=== PATIENT | female | born 1945 | race Two or more races ===

== ENCOUNTER 2017-03-16 16:02 | Outpatient (CLI) | payer OTHER ==
[~2017-03-16 16:02] MED LIST: ALBUTEROL1.25 MG/3 IH; CELEBREX100 MG PO; HYZAAR 100-251 EACH PO; LOSARTAN-HCTZ1 EAC1 PO; PROAIR HFA8.5 GM IH; QVAR7.3 G1 IH; SINGULAIR10 MG PO; SYMBICORT 16010.2 GM IH; SYNTHROID50 MCG PO
== END 2017-03-16 17:00 | disposition home or self-care (01) ==
LOC: RAD 16:02
DX: M25.562 Pain in left knee (principal); M17.12 Unilateral primary osteoarthritis, left knee

== ENCOUNTER 2017-03-22 10:02 | Day surgery (SDC) | payer OTHER | END 2017-03-22 19:50 | disposition home or self-care (01) | LOC: CIR.AMB 10:02 | DX: M23.242 Derangement of anterior horn of lateral meniscus due to old tear or injury, left knee (principal); M23.222 Derangement of posterior horn of medial meniscus due to old tear or injury, left knee; M22.12 Recurrent subluxation of patella, left knee; M65.862 Other synovitis and tenosynovitis, left lower leg; M22.42 Chondromalacia patellae, left knee; D17.22 Benign lipomatous neoplasm of skin and subcutaneous tissue of left arm; D17.21 Benign lipomatous neoplasm of skin and subcutaneous tissue of right arm; M12.262 Villonodular synovitis (pigmented), left knee ==

== ENCOUNTER 2017-06-01 17:10 | Emergency (ER) | payer OTHER ==
[~2017-06-01] VITALS: Ht 152.4 cm; Wt 76.7 kg
== END 2017-06-01 19:04 | disposition home or self-care (01) ==
LOC: ER 17:10
DX: S40.011A Contusion of right shoulder, initial encounter (principal); W18.09XA Striking against other object with subsequent fall, initial encounter; Y93.89 Activity, other specified; Y92.89 Other specified places as the place of occurrence of the external cause; Y99.8 Other external cause status

== ENCOUNTER 2017-12-30 13:17 | Outpatient (CLI) | payer OTHER | END 2017-12-30 15:28 | disposition home or self-care (01) | LOC: NUCLEAR 13:17 | DX: M81.0 Age-related osteoporosis without current pathological fracture (principal) ==

== ENCOUNTER 2018-07-28 08:20 | Outpatient (CLI) | payer OTHER ==
[2018-07-28] MEDS ORDERED: VALSARTAN-HCTZ1 EAC3 PO (11:53)
[2018-07-28] MEDS ORDERED: ANASTROZOLE1 MG PO (11:55)
== END 2018-07-28 08:51 | disposition home or self-care (01) ==
LOC: LAB 08:20
DX: D64.89 Other specified anemias (principal); E88.89 Other specified metabolic disorders; D68.8 Other specified coagulation defects; N39.0 Urinary tract infection, site not specified; Z22.322 Carrier or suspected carrier of Methicillin resistant Staphylococcus aureus; I49.8 Other specified cardiac arrhythmias; Z76.89 Persons encountering health services in other specified circumstances

== ENCOUNTER 2018-08-02 14:56 | Outpatient (CLI) | payer OTHER ==
[~2018-08-02 14:56] MED LIST changes: +ANASTROZOLE1 MG PO; +VALSARTAN-HCTZ1 EAC3 PO
== END 2018-08-02 15:03 | disposition home or self-care (01) ==
LOC: RAD 501 14:56
DX: M79.652 Pain in left thigh (principal); M79.605 Pain in left leg

== ENCOUNTER 2018-08-02 16:19 | Inpatient (IN) | payer OTHER ==
[~2018-08-02] VITALS: Ht 152.4 cm; Wt 77.6 kg
[2018-08-11] MEDS ORDERED: AMILODIPINE PO (13:51)
[2018-08-11] MEDS ORDERED: ARIMIDEX PO (13:51)
[2018-08-11] MEDS ORDERED: ALLEGRA ALLERG180 MG PO (13:52)
[2018-08-11] MEDS ORDERED: ALENDRONATE PO (13:53)
[2018-08-15] MEDS ORDERED: AMLODIPINE BESYL5 MG PO (09:25)
[2018-08-15] MEDS ORDERED: ANASTROZOLE1 MG PO (09:25)
[2018-08-15] MEDS ORDERED: ALENDRONATE SOD70 MG PO (09:26)
[2018-08-15] MEDS ORDERED: XARELTO10 MG PO (09:27)
[2018-08-15] MEDS ORDERED: SYMBICORT 16010.2 GM IH (09:28)
[2018-08-15] MEDS ORDERED: TRAMADOL HCL50 MG PO (09:28)
== END 2018-08-18 18:30 | DRG 470 ==
LOC: SURH 08-15 06:09 → O/R 08-15 06:09 → RECOVERY 08-15 07:00 → SURH 08-15 14:13
PROVIDERS: ADMIT Orthopaedic Surgery
PROC: 0SRD0J9 Replacement of Left Knee Joint with Synthetic Substitute, Cemented, Open Approach (ICD-10-PCS; principal; 2018-08-15 07:00)
DX: M17.12 Unilateral primary osteoarthritis, left knee (principal); D62 Acute posthemorrhagic anemia

== ENCOUNTER 2018-08-31 08:10 | Outpatient (CLI) | payer OTHER ==
[~2018-08-31 08:10] MED LIST changes: +ALENDRONATE PO; +ALENDRONATE SOD70 MG PO; +ALLEGRA ALLERG180 MG PO; +AMILODIPINE PO; +AMLODIPINE BESYL5 MG PO; +ARIMIDEX PO; +TRAMADOL HCL50 MG PO; +XARELTO10 MG PO
== END 2018-08-31 08:20 | disposition home or self-care (01) ==
LOC: LAB 08:10
DX: M06.4 Inflammatory polyarthropathy (principal); D64.89 Other specified anemias

== ENCOUNTER 2018-09-06 07:56 | Outpatient (CLI) | payer OTHER | END 2018-09-06 15:14 | disposition home or self-care (01) | LOC: LAB 07:56 | DX: D64.89 Other specified anemias (principal); M06.4 Inflammatory polyarthropathy ==

== ENCOUNTER 2019-01-24 08:21 | Outpatient (CLI) | payer OTHER | END 2019-01-24 08:30 | disposition home or self-care (01) | LOC: LAB 08:21 | DX: M85.88 Other specified disorders of bone density and structure, other site (principal); E55.9 Vitamin D deficiency, unspecified; E88.89 Other specified metabolic disorders; E21.2 Other hyperparathyroidism; E56.1 Deficiency of vitamin K ==

== ENCOUNTER 2019-01-24 10:25 | Outpatient (CLI) | payer OTHER | END 2019-01-24 11:00 | disposition home or self-care (01) | LOC: NUCLEAR 10:25 | DX: M81.0 Age-related osteoporosis without current pathological fracture (principal) ==

== ENCOUNTER → 2019-01-31 | Outpatient (CLI) | payer OTHER | END | disposition home or self-care (01) | LOC: RAD 08:09 | DX: Z96.653 Presence of artificial knee joint, bilateral (principal) ==

== ENCOUNTER 2020-03-24 10:41 | Outpatient (CLI) | payer OTHER | END 2020-03-24 10:46 | disposition home or self-care (01) | LOC: RAD 10:41 | PROVIDERS: ATTEND Orthopaedic Surgery | DX: M25.562 Pain in left knee (principal); M25.561 Pain in right knee; Z96.653 Presence of artificial knee joint, bilateral ==

== ENCOUNTER 2020-11-21 11:51 | Outpatient (CLI) | payer OTHER | END 2020-11-21 11:53 | disposition home or self-care (01) | LOC: RAD 11:51 | PROVIDERS: ATTEND Orthopaedic Surgery | DX: M25.572 Pain in left ankle and joints of left foot (principal) ==

== ENCOUNTER 2020-11-21 12:24 | Outpatient (CLI) | payer OTHER | END 2020-11-21 12:29 | disposition home or self-care (01) | LOC: NUCLEAR 12:24 | PROVIDERS: ATTEND Orthopaedic Surgery | DX: M81.0 Age-related osteoporosis without current pathological fracture (principal) ==

== ENCOUNTER 2020-12-24 07:15 | Outpatient (CLI) | payer OTHER | END 2020-12-24 07:24 | disposition home or self-care (01) | LOC: NUCLEAR 07:15 | PROVIDERS: ATTEND Orthopaedic Surgery | DX: M79.605 Pain in left leg (principal); Z96.652 Presence of left artificial knee joint | CPT/HCPCS: 78315; 78802; A9503; A9556 ==

== ENCOUNTER 2021-02-23 06:49 | Outpatient (CLI) | payer OTHER | END 2021-02-23 06:57 | disposition home or self-care (01) | LOC: LAB 06:49 | PROVIDERS: ATTEND Orthopaedic Surgery | DX: E56.1 Deficiency of vitamin K (principal); E55.9 Vitamin D deficiency, unspecified; M85.9 Disorder of bone density and structure, unspecified ==

== ENCOUNTER 2022-03-17 09:05 | Outpatient (CLI) | payer OTHER | END 2022-03-17 09:15 | disposition home or self-care (01) | LOC: RAD 09:05 | PROVIDERS: ATTEND Orthopaedic Surgery | DX: M25.572 Pain in left ankle and joints of left foot (principal) ==

== ENCOUNTER 2022-06-01 12:56 | Outpatient (CLI) | payer OTHER | END 2022-06-01 13:11 | disposition home or self-care (01) | LOC: NUCLEAR 12:56 | PROVIDERS: ATTEND Orthopaedic Surgery | DX: M81.0 Age-related osteoporosis without current pathological fracture (principal) ==

== ENCOUNTER 2022-07-05 09:20 | Outpatient (CLI) | payer OTHER | END 2022-07-05 14:52 | disposition home or self-care (01) | LOC: LAB 09:20 | PROVIDERS: ATTEND Orthopaedic Surgery | DX: M85.9 Disorder of bone density and structure, unspecified (principal); E56.1 Deficiency of vitamin K; M81.8 Other osteoporosis without current pathological fracture; E83.42 Hypomagnesemia; E88.89 Other specified metabolic disorders ==

== ENCOUNTER 2022-12-21 10:05 | Outpatient (CLI) | payer OTHER | END 2022-12-21 10:09 | disposition home or self-care (01) | LOC: RAD 10:05 | PROVIDERS: ATTEND Orthopaedic Surgery | DX: M25.561 Pain in right knee (principal); Z91.048 Other nonmedicinal substance allergy status ==

== ENCOUNTER 2022-12-28 08:54 | Outpatient (CLI) | payer OTHER | END 2022-12-28 08:56 | disposition home or self-care (01) | LOC: RAD 08:54 | PROVIDERS: ATTEND Orthopaedic Surgery | DX: M25.561 Pain in right knee (principal) ==

== ENCOUNTER 2023-02-07 10:20 | Outpatient (CLI) | payer OTHER | END 2023-02-07 10:25 | disposition home or self-care (01) | LOC: RAD 10:20 | PROVIDERS: ATTEND Orthopaedic Surgery | DX: S72.454 Nondisplaced supracondylar fracture without intracondylar extension of lower end of right femur (principal); S82.144D Nondisplaced bicondylar fracture of right tibia, subsequent encounter for closed fracture with routine healing; Z91.048 Other nonmedicinal substance allergy status ==

== ENCOUNTER 2023-06-15 13:22 | Outpatient (CLI) | payer OTHER | END 2023-06-15 13:25 | disposition home or self-care (01) | LOC: NUCLEAR 13:22 | PROVIDERS: ATTEND Orthopaedic Surgery | DX: M81.0 Age-related osteoporosis without current pathological fracture (principal) ==

== ENCOUNTER 2024-07-25 10:06 | Outpatient (CLI) | payer OTHER | END 2024-07-25 10:07 | disposition home or self-care (01) | LOC: NUCLEAR 10:06 | PROVIDERS: ATTEND Orthopaedic Surgery | DX: M81.0 Age-related osteoporosis without current pathological fracture (principal) ==

== ENCOUNTER → 2024-08-07 08:37 | Outpatient (CLI) | payer OTHER | END | disposition home or self-care (01) | LOC: LAB 08:37 | PROVIDERS: ATTEND Orthopaedic Surgery | DX: E55.9 Vitamin D deficiency, unspecified (principal); M85.9 Disorder of bone density and structure, unspecified; E56.1 Deficiency of vitamin K ==

== ENCOUNTER 2024-08-07 08:55 | Outpatient (CLI) | payer OTHER | END 2024-08-07 09:06 | disposition home or self-care (01) | LOC: RAD 08:55 | PROVIDERS: ATTEND Orthopaedic Surgery | DX: Z96.653 Presence of artificial knee joint, bilateral (principal) ==

== ENCOUNTER 2024-09-04 08:26 | Outpatient (CLI) | payer OTHER ==
[2024-09-04 09:16] LABS: BASO % 0.4 % (0.1-1.2); EOS # 0.32 (0.04-0.54); EOS % 6.4 % (0.7-7.0); LYMPH # 0.81 (1.18-3.74); LYMPH % 16.3 % (19.3-53.1); MEAN PLATELET VOLUME 9.00 fl (9.4-12.4); MONO # 0.44 (0.24-0.82); MONO % 8.8 % (4.7-12.5); NEUT # 3.37 (1.56-6.13); NEUT % 67.7 % (34.0-71.1); RED CELL DISTRIBUTION WIDTH 14.1 % (11.6-14.4)
[2024-09-04 09:36] LABS: INR 1.05
[2024-09-04 09:46] LABS: URINE APPEARANCE Clear; URINE BILIRRUBIN Negative (NEGATIVE); URINE BLOOD Negative; URINE COLOR Yellow; URINE GLUCOSE Negative (NEGATIVE); URINE KETONE Negative (NEGATIVE); URINE LEUKOCYTE Large; URINE NITRATE Positive; URINE PROTEIN Trace (NEGATIVE); URINE UROBILINOGEN 1.0 E.U./dl
[2024-09-04 09:47] LABS: URINE RBC 4.6 uL (0.0-20.8); URINE WBC 1313.0 uL (0.0-23.2)
[2024-09-04 10:06] LABS: ALT/SGPT 27.0 U/L (12-78); AST/SGOT 20.0 U/L (15-37); BILIRUBIN TOTAL 0.74 mg/dL (0.3-1.2); BUN CREA RATIO 20.0 (7.0-25.0); CREATININE SERUM 0.7 mg/dL (0.55-1.02); GFR 81.14; GLOBULINA 2.9 G/DL (2.4-3.5); GLUCOSE FASTING 97.0 mg/dL (65-100); OSMOLALITY SERUM 274.0 MOSM/KG (275-295)
[2024-09-04 10:08] LABS: COL EPI 108 SECONDS (82-175)
[2024-09-04 11:56] LABS: URINE BACTERIA > 9821.5 uL (0.0-1933); URINE CAST 0.29 uL (0.0-1.40); URINE EPITHELIAL CELLS 0.9 uL (0.0-38.8)
== END 2024-09-04 09:12 | disposition home or self-care (01) ==
LOC: LAB 08:26
PROVIDERS: ATTEND Orthopaedic Surgery
DX: D64.9 Anemia, unspecified (principal); E88.9 Metabolic disorder, unspecified; D68.8 Other specified coagulation defects; N39.0 Urinary tract infection, site not specified; Z22.322 Carrier or suspected carrier of Methicillin resistant Staphylococcus aureus; E11.9 Type 2 diabetes mellitus without complications

== ENCOUNTER 2024-09-04 08:58 | Outpatient (CLI) | payer OTHER | END 2024-09-04 09:02 | disposition home or self-care (01) | LOC: RAD 08:58 | PROVIDERS: ATTEND Orthopaedic Surgery | DX: Z76.89 Persons encountering health services in other specified circumstances (principal) ==

== ENCOUNTER 2024-09-18 14:45 | Emergency (ER) | payer OTHER ==
[~2024-09-18] VITALS: Ht 162.6 cm; Wt 90.7 kg
[2024-09-18] MEDS ORDERED: RINGERS SOLUTION,LACTATED 500 ML IV STA (19:37)
[2024-09-18] MEDS ORDERED: FAMOtidine 10 MG/ML (4ML VIAL) IV PUSH STA (19:38)
[2024-09-18] MEDS ORDERED: HYOSCYAMINE SULFATE 0.125 MG TAB.SUBL SL ONE (19:45)
[2024-09-18 20:20] LABS: BASO % 0.5 % (0.1-1.2); EOS # 0.15 (0.04-0.54); EOS % 3.4 % (0.7-7.0); LYMPH # 1.15 (1.18-3.74); LYMPH % 26.4 % (19.3-53.1); MEAN PLATELET VOLUME 9.10 fl (9.4-12.4); MONO # 0.45 (0.24-0.82); MONO % 10.3 % (4.7-12.5); NEUT # 2.57 (1.56-6.13); NEUT % 59.2 % (34.0-71.1); RED CELL DISTRIBUTION WIDTH 13.9 % (11.6-14.4)
[2024-09-18 20:43] LABS: BUN CREA RATIO 15.0 (7.0-25.0); CREATININE SERUM 0.73 mg/dL (0.55-1.02); GFR 77.3; GLUCOSE FASTING 99.0 mg/dL (65-100); OSMOLALITY SERUM 262.0 MOSM/KG (275-295)
== END 2024-09-18 22:55 | disposition home or self-care (01) ==
LOC: ER 14:45
DX: R11.10 Vomiting, unspecified (principal); Z91.018 Allergy to other foods; Z91.030 Bee allergy status; R10.13 Epigastric pain
CPT/HCPCS: 36415; 96365; 99282; J3490